=== PATIENT | male | born 1985 | race Asian ===

== ENCOUNTER 2018-02-24 21:27 | Emergency (ER) | payer OTHER ==
[~2018-02-24] VITALS: Ht 160 cm; Wt 59.0 kg
[2018-02-24 21:36] VITALS: Ht 160 cm; Wt 59.0 kg
[2018-02-24 22:11] VITALS: BP 111/72
== END 2018-02-24 22:21 | disposition other institution (70) ==
LOC: ED 21:27
DX: Z02.89 Encounter for other administrative examinations (principal); F19.10 Other psychoactive substance abuse, uncomplicated